=== PATIENT | female | born 1955 | race African-American/Black ===

== ENCOUNTER 2019-03-26 15:33 | Emergency (ER) | payer OTHER ==
--- NOTE | 2019-03-26 16:10 | RAD ---
EXAM: Two views chest PROVIDED CLINICAL HISTORY: Cough and sore throat. COMPARISON: 10/09/2012 obtained from [facility]. FINDINGS: Cardiac silhouette is at the upper limits of normal in size. The pulmonary vasculature is within norm al limits. The lungs are clear. Degenerative changes are seen in the spine. Chest is overall stable compared to prior study. IMPRESSION: No acute cardiopulmonary process.
== END 2019-03-26 16:56 | disposition home or self-care (01) ==
LOC: SCSER 15:33
DX: J20.9 Acute bronchitis, unspecified (principal); J45.909 Unspecified asthma, uncomplicated; J06.9 Acute upper respiratory infection, unspecified; I10 Essential (primary) hypertension; E11.9 Type 2 diabetes mellitus without complications; F41.9 Anxiety disorder, unspecified
CPT/HCPCS: 71046; 87081; 87430